=== PATIENT | female | born 1965 | race Caucasian/White ===

== ENCOUNTER → 2018-01-28 09:43 | Outpatient (CLI) | payer OTHER, SELFPAY ==
--- NOTE | 2018-01-28 | DI.MG.S_ITS ---
BILATERAL DIGITAL SCREENING MAMMOGRAM 3D/2D WITH CAD: 01/28/2018 CLINICAL: Routine screening. Family history of breast cancer. Comparison is made to exams dated: 08/29/2016 mammogram, 08/25/2015 mammogram, and 08/16/2014 mammogram - [facility]. The tissue of both breasts is heterogeneously dense. This may lower the sensitivity of mammography. Current study was also evaluated with a Computer Aided Detection (CAD) system. No significant masses, calcifications, or other findings are seen in either breast. There has been no significant interval change. IMPRESSION: NEGATIVE There is no mammographic evidence of malignancy. A 1 year screening mammogram is recommended. This exam was interpreted at Station ID: [id number]. NOTE: For mammograms, a report in lay terms will be sent to the patient. Approximately 15% of breast malignancies will not be visualized mammographically. In the management of a palpable breast mass, a negative mammogram must not discourage biopsy of a clinically suspicious lesion. Electronically Signed By: Shubham ellsworth/yoselin:01/29/2018 08:24:16 letter sent: Normal Exam ACR BI-RADS Category 1: Negative 3341F
== END ==
PROVIDERS: Family Provider Nurse Practitioner; PCP Nurse Practitioner; Visit Provider Family Medicine
DX: Z12.31 Encounter for screening mammogram for malignant neoplasm of breast (principal); Z80.3 Family history of malignant neoplasm of breast
CPT/HCPCS: 77063; 77067

== ENCOUNTER → 2018-05-08 10:05 | Outpatient (CLI) | payer OTHER, SELFPAY ==
[2018-05-08 10:09] LABS: Bacteria Urine None Seen
[2018-05-08 12:16] LABS: Appearance Urine UA CLEAR; Bilirubin Urine UA NEGATIVE (NEGATIVE); Color Urine UA YELLOW; Glucose Urine UA 1+ g/dL (Normal); Ketones Urine UA NEGATIVE (NEGATIVE); Leukocyte Esterase Urine UA 1+ (NEGATIVE); Nitrite Urine UA POSITIVE (Negative); Occult Blood Urine UA 1+ (Negative); Protein Urine UA 2+ (Negative)
[2018-05-08 12:19] LABS: RBC Urine 5-10/HPF (0-5/HPF); WBC Urine 5-10/HPF (0-5/HPF)
[2018-05-08 12:20] LABS: Amorphous Sediment Urine 1+; Culture Indicated Urine Specimen Cultured
== END ==
PROVIDERS: PCP Family Medicine; Visit Provider Family Medicine
DX: R39.89 Other symptoms and signs involving the genitourinary system (principal)
CPT/HCPCS: 81001; 87077; 87086; 87186

== ENCOUNTER → 2018-08-11 10:25 | Outpatient (CLI) | payer OTHER, SELFPAY ==
[2018-08-11 11:17] LABS: Influenza A and B by PCR Rapid Negative (Negative)
== END ==
PROVIDERS: PCP Family Medicine; Visit Provider Physician Assistant
DX: J02.9 Acute pharyngitis, unspecified (principal); R68.89 Other general symptoms and signs
CPT/HCPCS: 87070; 87400

== ENCOUNTER → 2019-02-12 07:56 | Outpatient (CLI) | payer OTHER, SELFPAY ==
--- NOTE | 2019-02-12 | DI.MG.S_ITS ---
BILATERAL DIGITAL SCREENING MAMMOGRAM 3D/2D WITH CAD: 02/12/2019 CLINICAL: Routine screening. Family history of breast cancer. Comparison is made to exams dated: 08/29/2016 mammogram, 01/28/2018 mammogram, and 08/25/2015 mammogram - [facility]. The tissue of both breasts is heterogeneously dense. This may lower the sensitivity of mammography. Current study was also evaluated with a Computer Aided Detection (CAD) system. No significant masses, calcifications, or other findings are seen in either breast. There has been no significant interval change. IMPRESSION: NEGATIVE There is no mammographic evidence of malignancy. A 1 year screening mammogram is recommended. This exam was interpreted at Station ID: [id number]. NOTE: For mammograms, a report in lay terms will be sent to the patient. Approximately 15% of breast malignancies will not be visualized mammographically. In the management of a palpable breast mass, a negative mammogram must not discourage biopsy of a clinically suspicious lesion. Electronically Signed By: Jim freed/yoselin:02/12/2019 09:30:44 letter sent: Normal Exam ACR BI-RADS Category 1: Negative 3341F
== END ==
PROVIDERS: PCP Family Medicine; Visit Provider Family Medicine
DX: Z12.31 Encounter for screening mammogram for malignant neoplasm of breast (principal); Z80.3 Family history of malignant neoplasm of breast
CPT/HCPCS: 77063; 77067

== ENCOUNTER → 2019-11-10 09:16 | Outpatient (CLI) | payer OTHER, SELFPAY ==
--- NOTE | 2019-11-10 09:18 | DI.RAD.S_ITS ---
PROCEDURE: XR HIP W PEL IF DONE RT 2V INDICATIONS: right iliac crest pain TECHNIQUE: AP pelvis with lateral view(s) of the right hip(s). COMPARISON: None. FINDINGS: Bones: No fractures or dislocations. Pelvic ring appears intact. No suspicious bony lesions. Soft tissues: The visualized bowel gas pattern is normal. No suspicious soft tissue calcifications. Moderate amount of stool in colon. IMPRESSION: No acute osseous abnormalities. Dictated by: Andrae Gil M.D. on 11/10/2019 at 10:59 Approved by: Andrae Gil M.D. on 11/10/2019 at 11:00
[2019-11-10 10:12] LABS: Add Manual Diff / Slide Review NO; Basophils Absolute Auto 0 /uL (0-100); Basophils Percent Auto 0.4 % (0-2); Eosinophils Absolute Auto 100 /uL (0-450); Hematocrit 41.1 % (36-46); Hemoglobin 14.1 g/dL (12.0-16.0); Lymphocytes Absolute Auto 1700 /uL (1100-4500); Lymphocytes Percent Auto 30.5 % (25-40); Mean Corpuscular HGB Conc 34.4 % (30-36); Mean Corpuscular Hemoglobin 30.6 PG (26-34); Mean Corpuscular Volume 88.9 fL (80-100); Monocytes Absolute Auto 300 /uL (0-900); Monocytes Percent Auto 5.1 % (3-14); Neutrophils Absolute Auto 3400 /uL (1500-7000); Platelet Count 239 X10^3/uL (150-400); Red Blood Cell Count 4.62 X10^6/uL (4.0-5.2); White Blood Cell Count 5.4 X10^3/uL (4.5-11.0)
[2019-11-10 11:27] LABS: Alanine Aminotransferase 20 IU/L (<35); Albumin 4.8 g/dL (3.5-5.0); Albumin Globulin Ratio 1.5 (1.0-2.8); Alkaline Phosphatase 78 U/L (38-126); Aspartate Aminotransferase 30 IU/L (14-36); Bilirubin Total 0.5 mg/dL (0.2-1.3); Blood Urea Nitrogen 16 mg/dL (7-17); Calcium 9.5 mg/dL (8.4-10.2); Carbon Dioxide 26 mmol/L (22-32); Chloride 104 mmol/L (98-107); Cholesterol 215 mg/dL (140-199); Estimated Glomerular Filt Rate > 60.0 mL/min (>60); Globulin 3.3 g/dL (1.7-4.1); Glucose 107 mg/dL (70-100); HDL Cholesterol 56 mg/dL (40-60); HEMOLYSIS < 15 (0-50); LDL Cholesterol Calculated 140 mg/dL (<100); Sodium 141 mmol/L (137-145); Total Protein 8.1 g/dL (6.3-8.2); Triglycerides 93 mg/dL (35-150)
== END ==
PROVIDERS: PCP Family Medicine; Referring Provider Family Medicine; Visit Provider Family Medicine
DX: M25.551 Pain in right hip (principal); R10.2 Pelvic and perineal pain; Z51.81 Encounter for therapeutic drug level monitoring; Z13.220 Encounter for screening for lipoid disorders
CPT/HCPCS: 36415; 73502; 80053; 80061; 85025

== ENCOUNTER → 2020-10-31 15:58 | Outpatient (CLI) | payer OTHER, SELFPAY ==
--- NOTE | 2020-10-31 16:01 | DI.MG.S_ITS ---
BILATERAL DIGITAL SCREENING MAMMOGRAM 3D/2D WITH CAD: 10/31/2020 CLINICAL: Routine screening. Family history of breast cancer. Comparison is made to exams dated: 02/12/2019 mammogram, 01/28/2018 mammogram, and 08/29/2016 mammogram - [facility]. The tissue of both breasts is heterogeneously dense. This may lower the sensitivity of mammography. Current study was also evaluated with a Computer Aided Detection (CAD) system. There is an oval low density focal asymmetry in the right breast at 11 o'clock middle depth. This is more prominent. No other significant masses, calcifications, or other findings are seen in either breast. IMPRESSION: INCOMPLETE: NEEDS ADDITIONAL IMAGING EVALUATION The oval low density focal asymmetry in the right breast is indeterminate. Additional views with possible ultrasound are recommended. This exam was interpreted at Station ID: [id number]. NOTE: For mammograms, a report in lay terms will be sent to the patient. Approximately 15% of breast malignancies will not be visualized mammographically. In the management of a palpable breast mass, a negative mammogram must not discourage biopsy of a clinically suspicious lesion. Electronically Signed By: Jelly baron/yoselin:10/31/2020 20:56:55 letter sent: Additional Imaging Needed ACR BI-RADS Category 0: Incomplete 3340F
== END ==
PROVIDERS: PCP Family Medicine; Referring Provider Family Medicine; Visit Provider Family Medicine
DX: Z12.31 Encounter for screening mammogram for malignant neoplasm of breast (principal); Z80.3 Family history of malignant neoplasm of breast
CPT/HCPCS: 77063; 77067

== ENCOUNTER → 2020-11-03 08:54 | Outpatient (CLI) | payer OTHER, SELFPAY ==
[2020-11-03 11:13] LABS: Alanine Aminotransferase 21 IU/L (<35); Albumin 4.3 g/dL (3.5-5.0); Albumin Globulin Ratio 1.4 (1.0-2.8); Alkaline Phosphatase 69 U/L (38-126); Aspartate Aminotransferase 27 IU/L (14-36); BUN Creatinine Ratio 25.3 (6-22); Bilirubin Total 0.3 mg/dL (0.2-1.3); Blood Urea Nitrogen 19 mg/dL (7-17); Calcium 9.3 mg/dL (8.4-10.2); Carbon Dioxide 27 mmol/L (22-32); Chloride 105 mmol/L (98-107); Cholesterol 188 mg/dL (140-199); Estimated Glomerular Filt Rate > 60.0 mL/min (>60); Glucose 92 mg/dL (70-100); HDL Cholesterol 58 mg/dL (40-60); HEMOLYSIS < 15 (0-50); LDL Cholesterol Calculated 115 mg/dL (<100); Potassium 3.8 mmol/L (3.4-5.1); Sodium 141 mmol/L (137-145); Total Protein 7.3 g/dL (6.3-8.2); Triglycerides 77 mg/dL (35-150)
== END ==
PROVIDERS: PCP Family Medicine; Referring Provider Family Medicine; Visit Provider Family Medicine
DX: Z01.419 Encounter for gynecological examination (general) (routine) without abnormal findings (principal); Z13.220 Encounter for screening for lipoid disorders
CPT/HCPCS: 36415; 80053; 80061

== ENCOUNTER → 2020-11-08 10:57 | Outpatient (CLI) | payer OTHER, SELFPAY ==
--- NOTE | 2020-11-08 10:58 | DI.US.S_ITS ---
LIMITED ULTRASOUND OF RIGHT BREAST: 11/08/2020 CLINICAL: Patient returns today to evaluate a focal asymmetry in the right breast. Comparison is made to exams dated: 11/08/2020 mammogram, 10/31/2020 mammogram, 02/12/2019 mammogram, 01/28/2018 mammogram, 08/29/2016 mammogram, and 08/25/2015 mammogram - [facility]. Color flow and real-time ultrasound of the right breast 9-11 o'clock region were performed on the areas of interest. There is a 0.9 cm x 0.9 cm x 0.4 cm cluster of oval cysts with a septated internal wall in the right breast at 9 o'clock middle depth 3 cm from the nipple. This cluster of oval cysts is hypoechoic. This correlates with mammography findings. Color flow imaging demonstrates that there is no vascularity present. There also is a 0.8 cm x 0.3 cm x 0.6 cm cluster of oval cysts with a septated internal wall in the right breast at 11 o'clock middle depth. This cluster of oval cysts is hypoechoic. Color flow imaging demonstrates that there is no vascularity present. IMPRESSION: PROBABLY BENIGN The 0.9 cm x 0.9 cm x 0.4 cm cluster of oval cysts in the right breast at 9 o'clock middle depth is probably benign. Follow-up mammogram and ultrasound in 6 months is recommended. The 0.8 cm x 0.3 cm x 0.6 cm cluster of oval cysts in the right breast at 11 o'clock middle depth is probably benign. A follow-up ultrasound in 6 months is recommended. A follow-up mammogram and an ultrasound in 6 months are recommended to demonstrate stability. This exam was interpreted at Station ID: [id number]. Electronically Signed By: Larry Abraham M.D. ddsenia/:11/08/2020 13:37:57 letter sent: Followup Recommended Ultrasound BI-RADS: 3 Probably benign
--- NOTE | 2020-11-08 10:58 | DI.MG.S_ITS ---
UNILATERAL RIGHT DIGITAL DIAGNOSTIC MAMMOGRAM 3D/2D WITH ADDITIONAL VIEWS: 11/08/2020 CLINICAL: Additional evaluation requested from prior study. Comparison is made to exams dated: 10/31/2020 mammogram, 02/12/2019 mammogram, 01/28/2018 mammogram, and 08/29/2016 mammogram - [facility]. The tissue of right breast is heterogeneously dense. This may lower the sensitivity of mammography. There is an oval low density focal asymmetry with an indistinct and circumscribed margin in the right breast at 9 o'clock anterior depth. No other significant masses or calcifications are seen in the breast. IMPRESSION: INCOMPLETE: NEEDS ADDITIONAL IMAGING EVALUATION The oval low density focal asymmetry in the right breast is indeterminate. An ultrasound is recommended. Ultrasound will be performed immediately following the current exam. This exam was interpreted at Station ID: [id number]. NOTE: For mammograms, a report in lay terms will be sent to the patient. Approximately 15% of breast malignancies will not be visualized mammographically. In the management of a palpable breast mass, a negative mammogram must not discourage biopsy of a clinically suspicious lesion. Electronically Signed By: Larry Abraham M.D. ddsenia/:11/08/2020 12:16:45 ACR BI-RADS Category 0: Incomplete 3340F
== END ==
PROVIDERS: PCP Family Medicine; Referring Provider Family Medicine; Visit Provider Family Medicine
DX: R92.8 Other abnormal and inconclusive findings on diagnostic imaging of breast (principal); N60.01 Solitary cyst of right breast
CPT/HCPCS: 76642; 77065; G0279

== ENCOUNTER → 2020-11-23 15:57 | Outpatient (CLI) | payer OTHER, SELFPAY ==
--- NOTE | 2020-11-23 16:00 | DI.RAD.S_ITS ---
PROCEDURE: XR FOOT RT MIN 3V INDICATIONS: B foot pain TECHNIQUE: 3 views of the foot were acquired. COMPARISON: [facility], , FOOT 3V LEFT, 01/05/2013, 8:35. FINDINGS: Bones: No acute fracture identified. 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 Scattered degenerative subchondral sclerosis and spurring. Mild increased callus formation along the 2nd metatarsal raising possibility of chronic stress fracture/reaction. 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 Achilles tendon appears normal. IMPRESSION: Degenerative and chronic changes as above. Unfused accessory navicular incidentally noted, and this is a bilateral finding. If there is clinical symptomatology of (associated) posterior tibialis tendinopathy, ankle MRI could be performed. Dictated by: Magdy Harrison M.D. on 11/23/2020 at 16:31 Approved by: Magdy Harrison M.D. on 11/23/2020 at 16:33
--- NOTE | 2020-11-23 16:00 | DI.RAD.S_ITS ---
PROCEDURE: XR FOOT LT MIN 3V INDICATIONS: B foot pain TECHNIQUE: 3 views of the foot were acquired. COMPARISON: [facility], , FOOT 3V LEFT, 01/05/2013, 8:35. 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 Chronic appearing callus involving the 2nd metatarsal shaft could reflect chronic stress fracture although technically indeterminate. Soft tissues: No tibiotalar joint effusion. Achilles tendon appears normal. IMPRESSION: Chronic changes as above. If the patient's pain or other symptoms persist, consider further evaluation with MRI Dictated by: Magdy Harrison M.D. on 11/23/2020 at 16:30 Approved by: Magdy Harrison M.D. on 11/23/2020 at 16:31
== END ==
PROVIDERS: PCP Family Medicine; Referring Provider Family Medicine; Visit Provider Family Medicine
DX: M79.671 Pain in right foot (principal); M79.672 Pain in left foot; M19.072 Primary osteoarthritis, left ankle and foot; M19.071 Primary osteoarthritis, right ankle and foot
CPT/HCPCS: 73630

== ENCOUNTER → 2021-06-07 14:14 | Outpatient (CLI) | payer OTHER, SELFPAY ==
--- NOTE | 2021-06-07 14:15 | DI.US.S_ITS ---
LIMITED ULTRASOUND OF RIGHT BREAST: 06/07/2021 CLINICAL: Patient returns today to evaluate a focal asymmetry in the right breast. Comparison is made to exams dated: 06/07/2021 mammogram, 11/08/2020 ultrasound, 11/08/2020 mammogram, 10/31/2020 mammogram, 02/12/2019 mammogram, and 01/28/2018 mammogram - [facility]. Color flow ultrasound of the right breast 9 o'clock and 11 o'clock regions was performed. Diaz scale images of the real-time examination were reviewed. There is a 0.8 cm x 0.8 cm x 0.5 cm cluster of oval cysts with a septated internal wall in the right breast at 9 o'clock middle depth 3 cm from the nipple. This cluster of oval cysts is hypoechoic. These abnormalities are not significantly changed and correlates with mammography findings. Color flow imaging demonstrates that there is no vascularity present. There also is a 0.8 cm x 0.7 cm x 0.3 cm cluster of oval cysts with a septated internal wall in the right breast at 11 o'clock middle depth 3 cm from the nipple. This cluster of oval cysts is hypoechoic. These abnormalities are not significantly changed. Color flow imaging demonstrates that there is no vascularity present. IMPRESSION: PROBABLY BENIGN The 0.8 cm x 0.8 cm x 0.5 cm cluster of oval cysts in the right breast at 9 o'clock middle depth is probably benign. The 0.8 cm x 0.7 cm x 0.3 cm cluster of oval cysts in the right breast at 11 o'clock middle depth is probably benign. A follow-up mammogram and an ultrasound in 6 months is recommended to demonstrate stability. This exam was interpreted at Station ID: [id number]. Electronically Signed By: Richard ordaz/yoselin:06/07/2021 15:53:42 letter sent: Followup Recommended Ultrasound BI-RADS: 3 Probably benign
--- NOTE | 2021-06-07 14:15 | DI.MG.S_ITS ---
UNILATERAL RIGHT DIGITAL DIAGNOSTIC MAMMOGRAM 3D/2D: 06/07/2021 CLINICAL: Short term follow up of the right breast. Comparison is made to exams dated: 11/08/2020 mammogram, 10/31/2020 mammogram, 02/12/2019 mammogram, 11/08/2020 ultrasound, and 01/28/2018 mammogram - [facility]. The tissue of right breast is heterogeneously dense. This may lower the sensitivity of mammography. There is an oval low density focal asymmetry with an indistinct and circumscribed margin in the right breast at 9 o'clock anterior depth. This is not significantly changed. No other significant masses or calcifications are seen in the breast. IMPRESSION: INCOMPLETE: NEEDS ADDITIONAL IMAGING EVALUATION The oval low density focal asymmetry in the right breast is indeterminate. An ultrasound is recommended. This exam was interpreted at Station ID: [id number]. NOTE: For mammograms, a report in lay terms will be sent to the patient. Approximately 15% of breast malignancies will not be visualized mammographically. In the management of a palpable breast mass, a negative mammogram must not discourage biopsy of a clinically suspicious lesion. Electronically Signed By: Richard ordaz/yoselin:06/07/2021 15:51:49 ACR BI-RADS Category 0: Incomplete 3340F
== END ==
PROVIDERS: PCP Family Medicine; Referring Provider Family Medicine; Visit Provider Family Medicine
DX: R92.8 Other abnormal and inconclusive findings on diagnostic imaging of breast (principal); N60.01 Solitary cyst of right breast
CPT/HCPCS: 76642; 77065; G0279

== ENCOUNTER → 2022-01-10 10:55 | Outpatient (CLI) | payer OTHER, SELFPAY ==
--- NOTE | 2022-01-10 10:56 | DI.US.S_ITS ---
LIMITED ULTRASOUND OF RIGHT BREAST: 01/10/2022 CLINICAL: Patient returns for a 6 month follow up of the right breast. Comparison is made to exams dated: 01/10/2022 mammogram, 06/07/2021 mammogram, 06/07/2021 ultrasound, 11/08/2020 ultrasound, 11/08/2020 mammogram, and 10/31/2020 mammogram - [facility]. Real-time ultrasound of the right breast 9 o'clock and 11 o'clock regions was performed. Diaz scale images of the real-time examination were reviewed. There is a 0.8 cm x 0.8 cm x 0.5 cm cluster of oval cysts with a septated internal wall in the right breast at 9 o'clock middle depth 3 cm from the nipple. This cluster of oval cysts is hypoechoic. These abnormalities are not significantly changed and correlates with mammography findings. Color flow imaging demonstrates that there is no vascularity present. There also is a 0.8 cm x 0.7 cm x 0.3 cm cluster of oval cysts with a septated internal wall in the right breast at 11 o'clock middle depth 3 cm from the nipple. This cluster of oval cysts is hypoechoic. These abnormalities are not significantly changed. Color flow imaging demonstrates that there is no vascularity present. IMPRESSION: PROBABLY BENIGN The 0.8 cm x 0.8 cm x 0.5 cm cluster of oval cysts in the right breast at 9 o'clock middle depth is probably benign. The 0.8 cm x 0.7 cm x 0.3 cm cluster of oval cysts in the right breast at 11 o'clock middle depth is probably benign. A follow-up mammogram and an ultrasound in 12 months is recommended. This exam was interpreted at Station ID: [id number]. Electronically Signed By: Richard ordaz/yoselin:01/10/2022 19:38:38 letter sent: Followup Recommended Ultrasound BI-RADS: 3 Probably benign
--- NOTE | 2022-01-10 10:56 | DI.MG.S_ITS ---
BILATERAL DIGITAL DIAGNOSTIC MAMMOGRAM 3D/2D: 01/10/2022 CLINICAL: Short term follow up of the right breast, due for bilateral imaging. Comparison is made to exams dated: 06/07/2021 ultrasound, 06/07/2021 mammogram, 11/08/2020 ultrasound, 11/08/2020 mammogram, 10/31/2020 mammogram, and 02/12/2019 mammogram - [facility]. The tissue of both breasts is heterogeneously dense. This may lower the sensitivity of mammography. There is an oval low density focal asymmetry with an indistinct and circumscribed margin in the right breast at 9 o'clock anterior depth. This is not significantly changed. No other significant masses, calcifications, or other findings are seen in either breast. IMPRESSION: INCOMPLETE: NEEDS ADDITIONAL IMAGING EVALUATION The oval low density focal asymmetry in the right breast is indeterminate. An ultrasound is recommended. Based on Tyrer-Cuzick model (a risk assessment model), the patient's lifetime risk is 21.0% and her 10 year risk is 7.6%. If a patient has an elevated risk, a more comprehensive evaluation should be considered and/or a referral to a genetic counselor. The [place] [employer], [place] [employer], and NCCN Guidelines advise the consideration of Breast MRI as an adjunct to screening mammography in patients whose Lifetime risk to develop breast cancer is 20% or higher. This exam was interpreted at Station ID: [id number]. NOTE: For mammograms, a report in lay terms will be sent to the patient. Approximately 15% of breast malignancies will not be visualized mammographically. In the management of a palpable breast mass, a negative mammogram must not discourage biopsy of a clinically suspicious lesion. Electronically Signed By: Richard ordaz/yoselin:01/10/2022 19:32:53 ACR BI-RADS Category 0: Incomplete 3340F
== END ==
PROVIDERS: PCP Family Medicine; Referring Provider Family Medicine; Visit Provider Family Medicine
DX: R92.8 Other abnormal and inconclusive findings on diagnostic imaging of breast (principal); N60.01 Solitary cyst of right breast
CPT/HCPCS: 76642; 77066; G0279

== ENCOUNTER → 2022-04-13 16:11 | Outpatient (CLI) | payer OTHER, SELFPAY | PROVIDERS: PCP Family Medicine; Visit Provider Student in an Organized Health Care Education/Training Program | DX: R30.0 Dysuria (principal) | CPT/HCPCS: 87077; 87086; 87186 ==

== ENCOUNTER → 2022-06-12 16:04 | Outpatient (CLI) | payer OTHER, SELFPAY ==
--- NOTE | 2022-06-12 16:09 | DI.RAD.S_ITS ---
PROCEDURE: XR SHOULDER RT MIN 2V INDICATIONS: shoulder pain x6 weeks TECHNIQUE: 3 views of the shoulder were acquired. COMPARISON: None. FINDINGS: Bones: No fractures or dislocations. No suspicious bony lesions. Visualized ribs appear intact. Soft tissues: No suspicious soft tissue calcifications. IMPRESSION: No fracture. No acute osseous lesion. If symptoms and/or clinical suspicion for pathology persists, further assessment with repeat radiographs (7-10 days) or advanced imaging (e.g. CT, MRI or bone scan) should be considered. Dictated by: Shaina Anderson MD, PhD on 06/12/2022 at 16:34 Approved by: Shaina Anderson MD, PhD on 06/12/2022 at 16:34
== END ==
PROVIDERS: PCP Family Medicine; Referring Provider Family Medicine; Visit Provider Family Medicine
DX: M25.511 Pain in right shoulder (principal)
CPT/HCPCS: 73030

== ENCOUNTER → 2022-07-28 14:03 | Outpatient (CLI) | payer OTHER, SELFPAY ==
--- NOTE | 2022-07-28 14:04 | DI.MRI.S_ITS ---
PROCEDURE: MR SHOULDER RT WO CON INDICATIONS: worsening shoulder pain TECHNIQUE: Noncontrast oblique coronal T2 fast spin echo with fat saturation, oblique sagittal T1 spin echo and T2 fast spin echo with fat saturation, axial T1 spin echo and T2 fast spin echo with fat saturation through the shoulder. COMPARISON: None. FINDINGS: Image quality: Excellent. Rotator cuff: Low to moderate grade articular surface partial-thickness tear involving distal supraspinatus at its insertion on the humeral head is seen extending to musculotendinous junction. Distal infraspinatus tendinosis is noted. Low-grade partial-thickness tear involving superior fibers of distal subscapularis is also noted. No full-thickness rotator cuff tendon rupture Sagittal images demonstrate no significant muscle atrophy. Bones and bursae: No bone marrow contusions or fractures. Mild to moderate acromioclavicular joint osteoarthritic changes are seen with downward osteophyte formation depressing the musculotendinous junction of supraspinatus. Small amount of joint effusion and subacromial subdeltoid bursal fluid is seen. Capsule and soft tissues: There is signal abnormality and contour irregularity involving superior labrum at 11 to 1 o'clock position. The long head of the biceps tendon demonstrates normal location and morphology. The rotator interval appears normal, without fibrosis. The coracohumeral ligament is normal in thickness. IMPRESSION: 1. Low to moderate grade articular surface partial-thickness tear involving distal supraspinatus extending to musculotendinous junction. Distal infraspinatus tendinosis. Low-grade partial-thickness tear involving superior fibers of distal subscapularis. No full-thickness rotator cuff tendon rupture. No significant muscle atrophy. 2. Mild to moderate acromioclavicular joint osteoarthritis. No fracture or dislocation. Small amount of joint effusion and subacromial subdeltoid bursal fluid. 3. Suggestion of superior labral tear at 11 to 1 o'clock position. Dictated by: Franco Owens M.D. on 07/30/2022 at 8:31 Approved by: Franco Owens M.D. on 07/30/2022 at 8:46
== END ==
PROVIDERS: PCP Family Medicine; Referring Provider Orthopaedic Surgery; Visit Provider Orthopaedic Surgery
DX: M75.111 Incomplete rotator cuff tear or rupture of right shoulder, not specified as traumatic (principal); M19.011 Primary osteoarthritis, right shoulder; M25.511 Pain in right shoulder
CPT/HCPCS: 73221

== ENCOUNTER → 2022-12-12 12:40 | Outpatient (CLI) | payer OTHER, SELFPAY ==
--- NOTE | 2022-12-12 | DI.RAD.S_ITS ---
Bone Density Report Name: JUAN QUINTANILLA Age: 57 Sex: Female Ethnicity: White Date of : 1965 Indication: postmenopausal; screening for osteoporosis; Referring Provider: PRISCILLA JOYCE Study: Bone densitometry was performed. Exam Date: December 12, 2022 Accession number: [id number] Bone Density: Region BMD T-score Z-score Classification AP Spine(L1-L4) 0.816 -2.1 -0.8 Osteopenia Femoral Neck (Left) 0.616 -2.1 -0.9 Osteopenia Total Hip (Left) 0.806 -1.1 -0.3 Osteopenia Femoral Neck (Right) 0.559 -2.6 -1.4 Osteoporosis Total Hip (Right) 0.786 -1.3 -0.4 Osteopenia Total Hip Mean 0.796 -1.2 -0.4 Osteopenia World Health Organization criteria for BMD impression classify patients as: Normal (T-score at or above -1.0), Osteopenia (T-score between -1.0 and -2.5), or Osteoporosis (T-score at or below -2.5). 10-year Fracture Risk: FRAX not reported because: Some T-score for Spine Total or Hip Total or Femoral Neck at or below -2.5 Impression: The patient has osteoporosis, based on the Right Femoral Neck T-score. Discussion: INCREASED RISK OF FRACTURE. BONE DENSITY IS UNDESIRABLY LOW AT ONE OR MORE SKELETAL SITES, CONSISTENT WITH POSTMENOPAUSAL OSTEOPOROSIS. This patient's lowest T-score meets the World Health Organization's (WHO) criteria for osteoporosis at one or more sites (T-score -2.5 or below). In untreated patients, the risk of osteoporotic fracture increases approximately two-fold for each 1.0 SD decrease in T-score. Low bone density is not the only risk factor for fracture; also consider factors such as patient's age, frailty or poor health, risk of falling, risk of injury, previous osteoporotic fracture, family history of osteoporosis, cigarette smoking, low body weight, etc. Not everyone with low bone mineral density has osteoporosis; osteomalacia and other metabolic bone disorders should also be considered. Patients who have osteoporosis should be evaluated for specific diseases and conditions (secondary causes) that may cause or contribute to bone loss. The [place] [employer]ocrinologists (AACE) and National Osteoporosis Foundation (NOF) recommend pharmacologic intervention for all postmenopausal women whose T-score is in this range. The patient should follow a healthful lifestyle (good nutrition with adequate calcium and vitamin D, and appropriate weight-bearing exercise). Follow-Up: Consider a repeat BMD and Vertebral Fracture Assessment (VFA) exam in 2 years or sooner if medically necessary, to reassess this patient's status. Reported by: JEANNA VILLAGOMEZ MD on 12/12/2022 1:05:00 PM.
== END ==
PROVIDERS: PCP Internal Medicine; Referring Provider Internal Medicine; Visit Provider Internal Medicine
DX: Z78.0 Asymptomatic menopausal state (principal); Z13.820 Encounter for screening for osteoporosis; M81.0 Age-related osteoporosis without current pathological fracture
CPT/HCPCS: 77080

== ENCOUNTER → 2023-01-28 09:28 | Outpatient (CLI) | payer OTHER, SELFPAY ==
--- NOTE | 2023-01-28 | DI.US.S_ITS ---
ULTRASOUND OF RIGHT BREAST: 01/28/2023 CLINICAL: 12 month follow up. Comparison is made to exams dated: 01/28/2023 mammogram, 01/10/2022 ultrasound, 01/10/2022 mammogram, 06/07/2021 ultrasound, 06/07/2021 mammogram, and 11/08/2020 ultrasound - [facility]. Real-time ultrasound of the right breast was performed. Diaz scale images of the real-time examination were reviewed. There is a benign 1 cm x 0.6 cm x 2.3 cm cluster of cysts in the right breast at 9 o'clock middle depth 3 cm from the nipple. This is increased in size and correlates with mammography findings. Color flow imaging demonstrates that there is no vascularity present. Stable clustered microcysts also seen at 11:00, 5 x 2 x 6mm. IMPRESSION: BENIGN There is no sonographic evidence of malignancy. The 1 cm x 0.6 cm x 2.3 cm cluster of cysts in the right breast is consistent with apocrine metaplasia. Although it is increased in size, no solid component is identified, benign Other simple and clustered microcysts are present, benign. These correlate with mammographic findings. Return to annual mammogram recommended. Patient has elevated lifetime risk and supplemental MRI screening is recommended. This exam was interpreted at Station ID: [id number]. Electronically Signed By: Law Duggan M.D. /:01/28/2023 11:22:18 letter sent: Normal Exam Ultrasound BI-RADS: 2 Benign
--- NOTE | 2023-01-28 | DI.MG.S_ITS ---
BILATERAL DIGITAL DIAGNOSTIC MAMMOGRAM 3D/2D: 01/28/2023 CLINICAL: 1 year diagnostic follow up Family history of breast cancer. Comparison is made to exams dated: 01/10/2022 mammogram, 06/07/2021 mammogram, 11/08/2020 mammogram, 10/31/2020 mammogram, and 02/12/2019 mammogram - [facility]. Both breasts are heterogeneously dense, which may obscure small masses (category c / 51-75% glandular tissue). There is an oval low density focal asymmetry with an indistinct and circumscribed margin in the right breast at 9 o'clock anterior depth. This is not significantly changed. No other significant masses, calcifications, or other findings are seen in either breast. IMPRESSION: INCOMPLETE: NEEDS ADDITIONAL IMAGING EVALUATION The oval low density focal asymmetry in the right breast is indeterminate. An ultrasound is recommended. Based on Tyrer-Cuzick model (a risk assessment model), the patient's lifetime risk is 20.7% and her 10 year risk is 8.0%. If a patient has an elevated risk, a more comprehensive evaluation should be considered and/or a referral to a genetic counselor. The [place] [employer], [place] [employer], and NCCN Guidelines advise the consideration of Breast MRI as an adjunct to screening mammography in patients whose Lifetime risk to develop breast cancer is 20% or higher. This exam was interpreted at Station ID: [id number]. NOTE: For mammograms, a report in lay terms will be sent to the patient. Approximately 15% of breast malignancies will not be visualized mammographically. In the management of a palpable breast mass, a negative mammogram must not discourage biopsy of a clinically suspicious lesion. Electronically Signed By: Law Duggan M.D. lc/:01/28/2023 11:16:30 ACR BI-RADS Category 0: Incomplete [id number]
== END ==
PROVIDERS: PCP Internal Medicine; Referring Provider Internal Medicine; Visit Provider Internal Medicine
DX: R92.8 Other abnormal and inconclusive findings on diagnostic imaging of breast (principal); N64.89 Other specified disorders of breast
CPT/HCPCS: 76642; 77066; G0279

== ENCOUNTER → 2024-03-18 12:06 | Outpatient (CLI) | payer OTHER, SELFPAY ==
--- NOTE | 2024-03-18 12:08 | DI.RAD.S_ITS ---
PROCEDURE: XR HIP W PEL IF DONE LT 2V INDICATIONS: GROIN PAIN TECHNIQUE: AP pelvis with lateral view(s) of the left hip(s). COMPARISON: [facility], , XR HIP W PEL IF DONE RT 2V, 11/10/2019, 9:12. FINDINGS: Bones: No fractures or dislocations. Pelvic ring appears intact. No suspicious bony lesions. Soft tissues: The visualized bowel gas pattern is normal. No suspicious soft tissue calcifications. IMPRESSION: No visualized acute fracture or dislocation. However, if clinical concern and/or pain persist, short interval imaging followup in 7-10 days is recommended, as occult injury cannot be definitively excluded. Dictated by: Nayeli Zaldivar M.D. on 03/18/2024 at 14:00 Approved by: Nayeli Zaldivar M.D. on 03/18/2024 at 14:01
--- NOTE | 2024-03-18 12:09 | DI.RAD.S_ITS ---
PROCEDURE: XR KNEE LT 3V INDICATIONS: knee pain TECHNIQUE: 3 views of the knee were acquired. COMPARISON: None. FINDINGS: Bones: No fractures or dislocations. No suspicious bony lesions. Mild tricompartmental arthritic change most severe medially. Periarticular osteophytes are present. No distinct erosions. Soft tissues: Mild joint effusion. No suspicious soft tissue calcifications. IMPRESSION: Early arthritic changes. Dictated by: Nayeli Zaldivar M.D. on 03/18/2024 at 14:01 Approved by: Nayeli Zaldivar M.D. on 03/18/2024 at 14:02
== END ==
LOC: RAD 12:07
PROVIDERS: PCP Internal Medicine; Referring Provider Internal Medicine; Visit Provider Internal Medicine
DX: R10.32 Left lower quadrant pain (principal); M25.562 Pain in left knee; G89.29 Other chronic pain
CPT/HCPCS: 73502; 73562

== ENCOUNTER → 2024-03-25 12:30 | Outpatient (CLI) | payer OTHER, SELFPAY ==
--- NOTE | 2024-03-25 12:31 | DI.MG.S_ITS ---
BILATERAL DIGITAL SCREENING MAMMOGRAM 3D/2D WITH CAD: 03/25/2024 CLINICAL: Routine screening. Family history of breast cancer. Comparison is made to exams dated: 01/28/2023 mammogram, 01/10/2022 mammogram, and 10/31/2020 mammogram - [facility]. The breasts are heterogeneously dense, which may obscure small masses (category c / 51-75% glandular tissue). Current study was also evaluated with a Computer Aided Detection (CAD) system. No significant masses, calcifications, or other findings are seen in either breast. There has been no significant interval change. IMPRESSION: NEGATIVE There is no mammographic evidence of malignancy. A 1 year screening mammogram is recommended. Based on Tyrer-Cuzick model (a risk assessment model), the patient's lifetime risk is 20.4% and her 10 year risk is 8.2%. If a patient has an elevated risk, a more comprehensive evaluation should be considered and/or a referral to a genetic counselor. The [place] [employer], [employer], and NCCN Guidelines advise the consideration of Breast MRI as an adjunct to screening mammography in patients whose Lifetime risk to develop breast cancer is 20% or higher. This exam was interpreted at Station ID: [id number]. NOTE: For mammograms, a report in lay terms will be sent to the patient. Approximately 15% of breast malignancies will not be visualized mammographically. In the management of a palpable breast mass, a negative mammogram must not discourage biopsy of a clinically suspicious lesion. Electronically Signed By: Jelly baron/yoselin:03/25/2024 18:10:37 letter sent: Normal Exam ACR BI-RADS Category 1: Negative [id number]
== END ==
LOC: MAMMO 12:30
PROVIDERS: PCP Internal Medicine; Referring Provider Internal Medicine; Visit Provider Internal Medicine
DX: Z12.31 Encounter for screening mammogram for malignant neoplasm of breast (principal); Z80.3 Family history of malignant neoplasm of breast; R92.333 Mammographic heterogeneous density, bilateral breasts
CPT/HCPCS: 77063; 77067

== ENCOUNTER → 2024-12-16 11:07 | Outpatient (CLI) | payer OTHER, SELFPAY ==
--- NOTE | 2024-12-16 11:08 | DI.RAD.S_ITS ---
PROCEDURE: XR DEXA AXIAL SKELETON INDICATIONS: OSTEOPOROSIS,POST MENOPAUSE ON HRT COMPARISON: [facility], , XR DEXA AXIAL SKELETON, 12/12/2022, 12:56. FINDINGS: Lumbar Spine: Bone mineral density 0.827 g/cm2, T score -2.3, no significant change. Left Femoral Neck: Bone mineral density 0.615 g/cm2, T score -2.1. Left Hip: Bone mineral density 0.800 g/cm2, T score -1.2, no significant change. Fracture Risk Calculation (when applicable): 10-year fracture risk of a major osteoporotic fracture 8.7 percent and of a hip fracture 1.2 percent. (T score greater or equal to -1.0 to: NORMAL) (T score from -1.1 to -2.4: OSTEOPENIA) (T score less than or equal to -2.5: OSTEOPOROSIS) IMPRESSION: Low bone mineral density (osteopenia) by WHO classification. Follow-up guidelines as follows: Osteoporosis: Consider a repeat DEXA and Vertebral Fracture Assessment (VFA) exam in 2 years or sooner if medically necessary, to reassess this patient's status. Osteopenia: Consider a repeat DEXA in 2-3 years to reassess this patient's status, or if there is a new clinical indication. Normal: Consider a repeat DEXA in 5 years or sooner, or if there is a new clinical indication. All treatment decisions require clinical judgment and consideration of individual patient factors, including patient preferences, comorbidities, previous drug use, risk factors not captured in the FRAX model (e.g., frailty, falls, vitamin D deficiency, increased bone turnover, interval significant decline in bone density ) and possible under- or over-estimation of fracture risk by FRAX. In addition, the NOF Guide recommends that FDA-approved medical therapies be considered in postmenopausal women and men age >= 50 years with a: * Hip or vertebral (clinical or morphometric) fracture * T-score of <=-2.5 at the spine or hip * Ten-year fracture probability by FRAX of >= 3% for hip fracture or >=20% for major osteoporotic fracture. Dictated by: Jordi Luna M.D. on 12/16/2024 at 16:03 Approved by: Jordi Luna M.D. on 12/16/2024 at 16:04
== END ==
LOC: RAD 11:08
PROVIDERS: PCP Internal Medicine; Referring Provider Registered Nurse; Visit Provider Registered Nurse
DX: M85.89 Other specified disorders of bone density and structure, multiple sites (principal); M81.6 Localized osteoporosis [Lequesne]; Z79.890 Hormone replacement therapy; Z78.0 Asymptomatic menopausal state
CPT/HCPCS: 77080

== ENCOUNTER → 2025-07-06 08:13 | Outpatient (CLI) | payer OTHER, SELFPAY ==
--- NOTE | 2025-07-06 08:14 | DI.MG.S_ITS ---
MM screening mammo BI: 07/06/2025. BI-RADS: 1 CLINICAL: 59-year old female for bilateral screening mammogram. Tyrer-Cuzick lifetime risk of 9.3%. No personal or first-degree family history of breast cancer. Current reported family history of breast cancer: paternal aunt. PRIOR EXAMS: 03/25/2024, 01/28/2023, 01/10/2022, 06/07/2021, 11/08/2020, 10/31/2020, 02/12/2019, 01/28/2018, 08/29/2016. MAMMOGRAPHY TECHNIQUE: 2D and 3D (tomosynthesis) digital mammographic views obtained, with additional images as needed for full coverage. Current study was also evaluated with a Computer Aided Detection (CAD) system. DENSITY C. The breasts are heterogeneously dense, which may obscure small masses. MAMMOGRAPHY FINDINGS Bilateral: No suspicious mass, asymmetry, microcalcification, or other abnormality seen. IMPRESSION: * No evidence of malignancy. RECOMMENDATIONS Bilateral * Annual screening mammography. OVERALL ASSESSMENT CATEGORY BI-RADS-1: Negative. The [employer] recommends annual screening mammography beginning at age 40 for women with average risk of breast cancer. ELECTRONICALLY SIGNED: Jenifer Thibodeaux M.D. on 07/06/2025 at 06:00:25 PM PT Interpreting Station ID: [id number]
== END ==
LOC: MAMMO 08:13
PROVIDERS: PCP Registered Nurse; Referring Provider Registered Nurse; Visit Provider Registered Nurse
DX: Z12.31 Encounter for screening mammogram for malignant neoplasm of breast (principal); R92.333 Mammographic heterogeneous density, bilateral breasts; Z80.3 Family history of malignant neoplasm of breast
CPT/HCPCS: 77063; 77067